=== PATIENT | female | born 1970 | race American Indian/Alaskan Native ===

== ENCOUNTER 2017-07-13 14:08 | Outpatient (CLI) | payer OTHER ==
--- NOTE | 2017-07-14 10:13 | Magnetic Resonance Report ---
MRI BRAIN WITHOUT CONTRAST: 07/13/17 14:08:00 CLINICAL: Severe migraine headaches. TECHNIQUE: Axial diffusion, T1, T2, FLAIR, gradient echo T2*, coronal T2 and sagittal T1 sequences on a 1.5 [place] magnet. FINDINGS: Normal ventricles and sulci. No restricted diffusion. No signal abnormality on any of the sequences. No mass or mass effect. No hemorrhage, edema or extra-axial collection. Normal pituitary and optic chiasm. The brainstem and cerebellum are normal. Intact vascular flow voids. Normal sinuses. The orbits, and soft tissues are normal. Normal calvarium and skull base. IMPRESSION: Normal study.
--- NOTE | 2017-07-14 10:16 | Magnetic Resonance Report ---
MRA HEAD WITHOUT CONTRAST: 07/13/17 14:08:00 CLINICAL: Severe headaches and family history of aneurysm. TECHNIQUE: Axial 3-D [id number] MR angiography of the [place] with review of axial source images. FINDINGS: Intact [place] with no aneurysm, stenosis or occlusion. Symmetric blood flow in the anterior, middle and posterior cerebral arteries. Normal basilar and vertebral arteries. IMPRESSION: Normal study.
--- NOTE | 2017-07-14 10:23 | Ultrasound Report ---
THYROID ULTRASOUND:07/13/17 14:08:00 CLINICAL: Thyroid mass. FINDINGS: High-resolution ultrasound demonstrated enlarged left thyroid lobe. The left lobe measures 5.5 x 3.1 x 4.9 cm and is occupied entirely by a complex oval mass measuring approximately 5.5 x 3.1 x 4.9 cm. The mass is predominantly solid with multiple round, slitlike as well as larger irregular cystic spaces. The right lobe measures 4.5 x 1.0 x 1.5 cm and is normal except for a single right upper pole cyst measuring 3 mm. The isthmus is normal and measures 3 mm AP thickness. IMPRESSION: 1. A 5.5 cm complex mass of the left thyroid. Recommend ultrasound guided fine needle aspiration to exclude malignancy. 2. Normal right thyroid lobe with a tiny 3 mm cyst.
== END 2017-07-13 14:09 | disposition home or self-care (01) ==
LOC: SPVWC 14:08
PROVIDERS: ATTEND Family Medicine
DX: E04.1 Nontoxic single thyroid nodule (principal); E07.89 Other specified disorders of thyroid; R51 Headache
CPT/HCPCS: 70544; 70551; 76536